=== PATIENT | male | born 2000 | race Caucasian/White ===

== ENCOUNTER 2024-08-02 06:00 | Emergency (ER) | payer OTHER ==
[2024-08-02 06:14] VITALS: BMI 42.1
[2024-08-02] MEDS ORDERED: ONDANSETRON *ODT* 4 MG TABLET ONE ×2 (06:35→06:44)
[2024-08-02] MEDS: ONDANSETRON HCL 4 MG/5 ML BULK BOTTLE PO ONE (06:43)
[2024-08-02 08:31] LABS: ALBUMIN 3.8 g/dl (3.4-5.0); BILIRUBIN,TOTAL 0.3 mg/dL (0.2-1); BLOOD UREA NITROGEN 15.3 mg/dL (7-18); CALCIUM 9.3 mg/dL (8.5-10.1); CREATININE 0.7 mg/dL (0.55-1.3); POTASSIUM 4.3 mmol/L (3.5-5.1); TOT PROT 7.2 g/dl (6.4-8.2)
[2024-08-02 08:55] LABS: ABSOLUTE IMMATURE GRANULOCYTES 0.03 x10^3/uL (0.0-0.031); BASOPHILS # 0.03 x10^3/uL (0.01-0.08); EOSINOPHIL % 2.5 % (0.8-7.0); EOSINOPHILS # 0.15 x10^3/uL (0.04-0.54); HEMATOCRIT 42.6 % (40.1-51.0); HEMOGLOBIN 13.8 g/dL (13.7-17.5); MCHC 32.4 g/dl (32.3-36.5); MEAN PLT VOLUME 10.5 fl (9.4-12.4); MONOCYTE # 0.55 x10^3/uL (0.30-0.82); MONOCYTE % 9.2 % (5.3-12.2); PLATELET COUNT 261 x10^3/uL (163-337); RDW 13.2 % (11.9-15.3)
[2024-08-02 09:22] VITALS: BP 127/76; PULSE 64; RESP 16; TEMP 98.4
[2024-08-02 12:02] LABS: HCV DIAGNOSTIC IN-HOUSE W/RFLX NON-REACTIVE (NONREACTIVE)
[2024-08-02 12:03] LABS: HIV INTERPRETATION NEGATIVE (NEGATIVE)
== END 2024-08-02 09:33 | disposition home or self-care (01) ==
LOC: FER 06:00
DX: F41.9 Anxiety disorder, unspecified (principal); R11.0 Nausea; F41.0 Panic disorder [episodic paroxysmal anxiety]; R20.2 Paresthesia of skin
CPT/HCPCS: 36415; 80053; 85025; 86803; 87389; 99283-25